=== PATIENT | female | born 1950 | race Caucasian/White ===

== ENCOUNTER 2023-12-29 08:27 | Emergency (ER) | payer BC, MEDICARE ==
[2023-12-29 08:46] LABS: BASE EXCESS VENOUS 8.9 mm/L; BICARBONATE,VENOUS 35.1 mmol/L; CARBOXYHEMOGLOBIN 1.7 % (0.0-1.6); METHEMOGLOBIN 0.7 %; O2 SATURATION VENOUS 59.2; OXYHEMOGLOBIN 57.8 %; PCO2 VENOUS 54.1 mm/Hg; PH,VENOUS 7.428 (7.350-7.450); TOTAL HEMOGLOBIN 16.1 g/dL (12.0-16.0)
[2023-12-29] MEDS: Albuterol/Ipratropium 3.0-0.5 MG/3 ML Neb Soln NEB ONE ×2 (08:46→12:16)
[2023-12-29 08:49] LABS: BASOPHILS PERCENT AUTO 1.1 % (0.1-1.3); EOSINOPHILS ABSOLUTE AUTO 0.92 K/uL (0.00-0.40); EOSINOPHILS PERCENT AUTO 10.2 % (0.0-5.4); HEMATOCRIT 45.7 % (34.3-46.0); HEMOGLOBIN 15.6 g/dL (11.2-15.5); IMMATURE GRAN ABSOLUTE AUTO 0.02 K/uL (0.00-0.23); IMMATURE GRAN PERCENT AUTO 0.2 % (0.0-0.7); LACTIC ACID 1.4 mmol/L (0.4-2.0); LYMPHOCYTES ABSOLUTE AUTO 1.32 K/uL (0.8-3.3); LYMPHOCYTES PERCENT AUTO 14.6 % (11.4-47.7); MEAN CORPUSCULAR HEMOGLOBIN 33.1 pg (31.6-35.5); MEAN CORPUSCULAR HGB CONC 34.1 g/dL (31.6-35.5); MONOCYTES ABSOLUTE AUTO 0.59 K/uL (0.20-0.90); MONOCYTES PERCENT AUTO 6.5 % (3.3-12.6); NEUTROPHILS PERCENT AUTO 67.4 % (40.0-78.1); PLATELET COUNT,PLT 248 K/uL (130-375); PO2 VENOUS 34.5 mm/Hg; RED BLOOD CELL COUNT 4.71 M/uL (3.77-5.24); WHITE BLOOD CELL COUNT,WBC 9.1 K/uL (3.2-11.0)
[2023-12-29 09:04] LABS: CALCIUM 9.6 mg/dL (8.5-10.1); CREATININE 0.7 mg/dL (0.6-1.0); EST CRCL DRUG DOSING (CG) 62.48 mL/min
[2023-12-29] MEDS: Potassium Chloride 20 MEQ Tab.ER PO ONE (10:01)
[2023-12-29] MEDS: Furosemide 40 MG Tab PO ONE (10:01)
[2023-12-29] MEDS: Doxycycline 100 MG Cap PO ONE (12:16)
[2023-12-29] MEDS: Dexamethasone 2 MG Tab PO ONE (12:16)
[2023-12-29] MEDS: Amoxicillin/Clavulanate K 875-125 MG Tab PO ONE (12:16)
== END 2023-12-29 12:49 | disposition home or self-care (01) ==
LOC: JP.ED 08:27
DX: J18.9 Pneumonia, unspecified organism (principal); I11.0 Hypertensive heart disease with heart failure; I50.9 Heart failure, unspecified; E78.00 Pure hypercholesterolemia, unspecified; J44.9 Chronic obstructive pulmonary disease, unspecified; Z90.710 Acquired absence of both cervix and uterus; Z79.899 Other long term (current) drug therapy; Z87.891 Personal history of nicotine dependence; Z79.82 Long term (current) use of aspirin
CPT/HCPCS: 36415; 71045; 80048; 82803; 83605; 83880; 85025; 94640; 99285; A9270; J8540; J7620

== ENCOUNTER 2024-01-14 15:35 | Emergency (ER) | payer MEDICARE ==
[2024-01-14 16:14] LABS: BASOPHILS ABSOLUTE AUTO 0.08 K/uL (0.00-0.10); BASOPHILS PERCENT AUTO 0.7 % (0.1-1.3); EOSINOPHILS ABSOLUTE AUTO 1.34 K/uL (0.00-0.40); EOSINOPHILS PERCENT AUTO 11.3 % (0.0-5.4); HEMATOCRIT 46.5 % (34.3-46.0); HEMOGLOBIN 15.6 g/dL (11.2-15.5); IMMATURE GRAN ABSOLUTE AUTO 0.03 K/uL (0.00-0.23); IMMATURE GRAN PERCENT AUTO 0.3 % (0.0-0.7); LYMPHOCYTES ABSOLUTE AUTO 0.84 K/uL (0.8-3.3); LYMPHOCYTES PERCENT AUTO 7.1 % (11.4-47.7); MEAN CORPUSCULAR HEMOGLOBIN 33.5 pg (31.6-35.5); MEAN CORPUSCULAR HGB CONC 33.5 g/dL (31.6-35.5); MONOCYTES ABSOLUTE AUTO 0.52 K/uL (0.20-0.90); MONOCYTES PERCENT AUTO 4.4 % (3.3-12.6); NEUTROPHILS PERCENT AUTO 76.2 % (40.0-78.1); PLATELET COUNT,PLT 251 K/uL (130-375); RED BLOOD CELL COUNT 4.65 M/uL (3.77-5.24); WHITE BLOOD CELL COUNT,WBC 11.9 K/uL (3.2-11.0)
[2024-01-14 16:17] LABS: BASE EXCESS ARTERIAL 10.4 mm/L; BICARBONATE,ARTERIAL 36.4 mmol/L (22.0-26.0); CARBOXYHEMOGLOBIN 1.4 % (0.0-1.6); METHEMOGLOBIN 0.6 %; O2 SATURATION ARTERIAL 86.3 % (95.0-98.0); OXYHEMOGLOBIN 84.6 %; PO2 ARTERIAL 52.1 mmHg (75.0-100.0); TOTAL HEMOGLOBIN 15.8 g/dL (12.0-16.0)
[2024-01-14] MEDS: Albuterol/Ipratropium 3.0-0.5 MG/3 ML Neb Soln NEB ONE (16:17)
[2024-01-14] MEDS: Sodium Chloride 0.9% 10 ML Syringe FLUSH PRN ×2 (16:37→18:08)
[2024-01-14] MEDS: cefTRIAXone 2 GM in Sodium Chloride 0.9% 50 ML IV ONE (16:42)
[2024-01-14] MEDS: Sodium Chloride 0.9% 500 ML IV ONE ×2 (16:42→18:23)
[2024-01-14 16:50] LABS: C-REACTIVE PROTEIN 2.3 mg/dL (<0.50); CALCIUM 9.8 mg/dL (8.5-10.1); CREATININE 0.8 mg/dL (0.6-1.0); EST CRCL DRUG DOSING (CG) 54.67 mL/min
[2024-01-14 16:52] LABS: ANION GAP 9.9 mmol/L (5.0-14.0); POTASSIUM,K 2.9 mmol/L (3.6-5.2)
[2024-01-14] MEDS: methylPREDNISolone Sodium Succinate 125 MG/2 ML SDV IVPUSH ONE (16:54)
[2024-01-14 17:16] LABS: CORONAVIRUS COVID-19 NAA NEGATIVE (NEGATIVE); INFLUENZA A NAA NEGATIVE (NEGATIVE); INFLUENZA B NAA NEGATIVE (NEGATIVE); RESPIRATORY SYNCYTIAL VIR NAA NEGATIVE (NEGATIVE)
[2024-01-14] MEDS: Potassium Chloride 20 MEQ Tab.ER PO ONE (17:26)
[2024-01-14] MEDS: Potassium Chloride 10 MEQ in Premix Bag 1 BAG IV ONE (17:27)
[2024-01-14] MEDS: Sodium Chloride 0.9% 60 ML IV SCH (18:08)
[2024-01-14] MEDS: Iopamidol 755 Mg/ML 100 ML Bottle IV SCH (18:08)
== END 2024-01-14 21:00 ==
LOC: JP.ED 15:35
DX: J96.01 Acute respiratory failure with hypoxia (principal); E87.4 Mixed disorder of acid-base balance; E87.6 Hypokalemia; I11.0 Hypertensive heart disease with heart failure; I50.9 Heart failure, unspecified; J44.9 Chronic obstructive pulmonary disease, unspecified; Z86.16 Personal history of COVID-19; Z79.82 Long term (current) use of aspirin; Z79.899 Other long term (current) drug therapy
CPT/HCPCS: 0241U; 36415; 36600; 71275; 80048; 82803; 83605; 83880; 84145; 85025; 85379; 86140; 87040; 93005; 94640; 94660; 96365; 96366; 96367; 96375; 99285; A9270; J0696; J2919; J3480; J3490; J7040; Q9967; 93010; J7620